=== PATIENT | male | born 1945 | race Caucasian/White ===

== ENCOUNTER 2019-08-29 20:21 | Emergency (ER) | payer BC ==
[2019-08-29] MEDS: MORPHINE SULFATE 4 MG/ML SYR/VIAL IV ONE (20:30)
[2019-08-29] MEDS: NITROGLYCERIN 0.4MG/HR TOPICAL PATCH TD ONE (20:30)
[2019-08-29] MEDS: ONDANSETRON HCL 4 MG/2 ML VIAL ONE (20:43)
[2019-08-29] MEDS ORDERED: SUCCINYLCHOLINE CHLORIDE 20 MG/ML 10ML VIAL IV ONE (20:48)
[2019-08-29] MEDS ORDERED: ETOMIDATE (2MG/ML) 20ML VIAL IV ONE (20:48)
[2019-08-29 20:49] LABS: Basophils # (auto) 0.1 uL; Basophils % (auto) 0.7 % (0.0-2.0); Eosinophils # (auto) 0.2 uL; Eosinophils % (auto) 2.3 % (0.0-7.0); Hematocrit 48.1 % (41.0-53.0); Hemoglobin 16.1 g/dL (13.5-17.5); Lymphocytes # (auto) 1.9 uL; Lymphocytes % (auto) 24.2 % (10.0-50.0); Mean Corpuscular Hgb Conc. 33.6 g/dL (32.0-36.0); Mean Corpuscular Volume 89.3 fL (80.0-100.0); Monocytes # (auto) 0.9 uL; Monocytes % (auto) 11.4 % (0.0-12.0); Neutrophils # (auto) 4.7 uL; Neutrophils % (auto) 61.4 % (37.0-80.0); Nucleated Red Blood Cells % 0.1 %; Platelet Count (auto) 289 10^3/uL (140-450); Red Blood Cells 5.38 10^6/uL (4.5-5.90); Red Cell Distribution Width 14.3 % (11.8-14.3); White Blood Cell 7.7 10^3/uL (4.4-10.8)
[2019-08-29 20:50] VITALS: BP 69/37
[2019-08-29] MEDS ORDERED: NALOXONE HCL 0.4 MG/ML VIAL ONE (20:52)
[2019-08-29 21:05] LABS: INR 1.14 (0.9-1.15); Partial Thromboplastin Time 27.5 sec (23.64-32.05)
[2019-08-29] MEDS ORDERED: ROCURONIUM 10MG/ML 10ML VIAL IV ONE (21:05)
[2019-08-29] MEDS ORDERED: NOREPINEPHRINE 8 MG/250ML KIT 250 ML IV ONE (21:06)
[2019-08-29 21:09] LABS: Albumin 3.1 g/dL (3.4-5.0); Calcium 8.5 mg/dL (8.5-10.1); Magnesium 2.2 mg/dL (1.6-2.6); Potassium 4.1 mmol/L (3.5-5.1)
[2019-08-29 21:14] LABS: BUN/Creatinine Ratio 16.4; Bilirubin, Total 0.6 mg/dL (0.2-1.0)
[2019-08-29] MEDS ORDERED: EPINEPHrine HCL 1 MG/10 ML SYRG ONE ×2 (21:28→21:34)
[2019-08-29] MEDS ORDERED: LIDOCAINE 2%HCL (LOCAL ANESTH.) INJ 20ML MDV ONE (21:29)
[2019-08-29] MEDS ORDERED: IOHEXOL 350 MG/ML 100ML IJ ONE (21:29)
[2019-08-29] MEDS ORDERED: EPINEPHrine HCL 250 ML IV ONE (21:34)
[2019-08-29] MEDS ORDERED: SODIUM BICARBONATE 8.4% INJ 50ML SYRINGE ONE (21:53)
[2019-08-29] MEDS: ONDANSETRON HCL 4 MG/2 ML VIAL IV ONE (22:49)
[2019-08-29] MEDS: SODIUM CHLOR 0.9% PF (SALINE LOCK) 10ML VIAL/SYR IV SCH (22:49)
[2019-08-31] MEDS ORDERED: ASPirin 81 mg TAB PO SCH (10:00)
== END 2019-08-29 21:55 | disposition expired ==
LOC: EDBD 20:21 → ER 20:23
DX: I21.9 Acute myocardial infarction, unspecified (principal); I25.10 Atherosclerotic heart disease of native coronary artery without angina pectoris; I10 Essential (primary) hypertension
CPT/HCPCS: 31500; 36415; 80053; 82962; 83735; 84484; 85025; 85610; 85730; 92950; 99291; C1894; J0171; J0330; J1644; J2310; J2405; J7030; Q9967